=== PATIENT | female | born 2005 | race Caucasian/White ===

== ENCOUNTER 2024-10-31 13:09 | Outpatient (AMB) | payer BC, SELFPAY ==
--- NOTE | 2024-10-31 13:15 | A.OFFVIS_ITS ---
Vital Signs 10/31/24 13:22 Height 5 ft 4 in Weight 126 lb BMI 21.6 BP 100/62 Blood Pressure Location Rt brachial Position Sitting Pulse 62 Pulse Source Pulse Oximeter Pulse Oximetry (%) 100 Oxygen Delivery Method Room Air Intake Visit Reasons: Constipation Intake Note: Patient new consult for Constipation. Patient cc: C.O. constipation without any evidence of hemo. Pt reports having a bowel movement every 2-3 days on average but used to be daily. Pt had been taking lactulose for about 1 mos but did not see any results. General GI upset also reported. Retail Operations Manager Required: No Accompanied by: Self / Same As Patient Allergies gluten Allergy (Intermediate, Verified 10/31/24 13:15) Nausea Medication List - Last Reconciled 10/31/24 by Heike Frank CNP No Known Home Meds HPI HPI Constipation: Details: Patient is a 18-year-old female with PMH of factor 2 deficiency. Referred by PCP for further evaluation of constipation. The patient reports the sudden onset of lower abdominal pain and bloating that began in late July of this year. Pain is described as crampy and is present whenever food is ingested; it also occurs when the stomach is empty. The discomfort is rated approximately 5/10 and is localized to the lower abdomen. Bowel movements have decreased to three to four times per week; the patient experienced a 5-day period without stool after returning to school three weeks ago. Occasionally the patient notices mild heartburn but no regurgitation, nausea, or vomiting. There is no hematochezia. The patient reports reduced appetite because eating exacerbates the pain. Dietary history reveals a strict gluten-free diet for 1.5 years, a three-week trial of dairy avoidance, and an overall ?clean? whole-food diet with limited processed foods. The patient has tried lactulose (1 month) with worsening abdominal pain, a single dose of polyethylene glycol (Miralax) with minimal benefit, and an occasional ducolax suppository that helped stool passage but caused some gastric upset. The patient notes recent fatigue, mental fog, and a sense of low mood lasting several weeks, as well as hair thinning and irregular menstrual cycles (intervals of >1 month). No new medications, surgeries, or recent travel are reported. Patient denies: fever/chills, n/v, regurgitation,dysphasia, unintentional wt loss or melena/hematochezia. Social hx: -Diet: Gluten-free for ~18 months; recent dairy avoidance (3 weeks); whole?food, low-processed diet; attempts to increase fiber (gummies, occasional powder), Estimates ~64oz water per day; uses electrolyte ?Propel? packets -Alcohol: Approx. 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) -Physical activity: Active, plays basketball regularly - family hx as below -denies personal hx of CA -denies significant cardiopulmonary history PFSH Medical History (Updated 10/31/24 @ 15:13 by Heike Frank CNP) Abdominal pain Constipation Social History (Reviewed 10/31/24 @ 13:17 by Panchito Tristan [facility]) Alcohol intake: never Patient Tobacco Use Status: Never used Tobacco Review of Systems Const Reports as per HPI ENT Reports as per HPI Card Reports as per HPI Resp Reports as per HPI GI Reports as per HPI Reports as per HPI Physical Exam Const General: healthy appearing, no acute distress and well developed Nutritional Appearance: average body habitus Orientation/consciousness: patient oriented x3 HEENT Head: Yes normal to inspection, Yes normocephalic and Yes atraumatic Face and sinus: Yes normal facial exam Eyes General: appearance normal, both eyes and all related structures Neck Neck: Yes normal visual inspection Resp Effort & Inspection: normal respiratory effort, able to speak in complete sentences, no tracheal deviation and symmetric chest movement Cardio Jugular venous distension: no JVD GI Inspection: Yes normal to inspection and No distended Palpation (GI): Soft to palpation, not firm, nontender and No hepatosplenomegaly present Auscultation: normoactive bowel sounds Neuro General: patient oriented x3 Gait exam (Neuro): Normal gait present Psych Appearance: grossly normal Mental Status: mental status grossly normal Speech and movement: Normal speech and movement present Affect: normal affect Attitude: cooperative Thought process: Normal thought process present Thought content: Normal thought content present Insight: Good insight present (Psych) Judgement: Good judgement present (Psych) Assessment & Plan Assessment & Plan (1) Constipation: Code(s): K59.00 - Constipation, unspecified Category: Medical Qualifiers: Constipation type: unspecified constipation type Qualified Code(s): K59.00 - Constipation, unspecified Plan: Functional constipation (possible IBS-C) ? chronic low frequency stools, abdominal pain relieved partially by bowel movement, bloating, and lack of red flag features. DDX: Hypothyroidism VS Celiac disease (despite gluten avoidance, cross?contamination possible) VS H.pylori associated dyspepsia Testing: -CBC, CMP, TSH, -Celiac serology -H.pylori stool antigen Medication: -Polyethylene glycol 3350 (Miralax) 17g PO daily mixed in 8oz water. -Start fiber supplement tablet 1 tablet daily x 2 weeks, then titrate to 2 tablets daily as tolerated. Lifestyle: -Increase water intake to >=0?oz/day, especially with activity. -Emphasize high?fiber foods (whole grains, legumes, fruits, vegetables) while monitoring for gas?producing FODMAPs. -Encourage regular timed meals and physical activity. Follow-up: Review labs and symptom response in 3-months; earlier contact if worsening pain, hematochezia, or weight loss. She is a student in [place], will complete labs locally. Encouraged to set up patient portal for easier comminucation. Plan Follow-up in 3 months or sooner as needed Time: I spent a total of 45 minutes on the date of encounter which includes: Preparing to see the patient (reviewed previous documentation, test results and medical history) Performing a medically appropriate exam and/or evaluation Ordering medications, tests, and procedures Documenting clinical information in the health record Orders: Orders TSH reflex Free T4 Today K59.00 - Constipation, unspecified Complete Blood Count Auto Diff Today K59.00 - Constipation, unspecified H pylori Ag Stool Today R10.9 - Unspecified abdominal pain Transglutaminase IgA Today K59.00 - Constipation, unspecified Comprehensive [place]. Panel Fast Today K59.00 - Constipation, unspecified Medications: New methylcellulose (laxative) (Citrucel) Take one tablet daily X 2 week, follow by two tablets daily thereafter 180 tabs 2RF polyethylene glycol 3350 (Miralax) Take 17G (one cap full) daily with 8oz of water 17 grams PO DAILY 510 grams 2RF constipation 30 days Coding Level of Care Code New Pt New Pt Level 4 (12469) Patient Type New Diagnoses Constipation, unspecified constipation type K59.00 Constipation type: unspecified constipation type
[2024-10-31 13:22] VITALS: BP 100/62; PULSE 62; O2SAT 100; BMI 21.6
--- OUTSIDE RECORDS SUMMARY | 2024-10-31 17:05 | XMS_ITS | Clinical Summary ---
Author Organization [facility] Address [address] [place] [address] Phone Care Team Providers Care Embroidery Operator Name Role Phone Tutu Clifton MD Primary Care Provider Medications No known medications Active Problems Problem Noted Date Diagnosed Date Family history of sudden cardiac 0 Overview (04/21/2023): Both GM under the age of 55 of cardiac related issues (aneurism and GA) but no further evaluation was done for parents or patient. Dad was dx with diabetes in the last year and it has been managed with diet changes. No other family hx or changes reported. No prior hx of fasting labs that mom is aware of. Last Assessment & Plan: Will send for screening labs, fasting recommended. Will refer to cardiology (Dr. Luevano) for further evaluation to r/o more serious causes. Influenza vaccine refused 01/16/2020 Overview (04/21/2023): Offered at [facility] 01/15/2020 and mom declines, counseling offered, questions answered, can return at any time to get IZ - stressed importance. Offered at [facility] 01/03/2021 and mom declines, counseling offered, questions answered, can return at any time to get IZ - stressed importance. Offered at [facility] 12/2020 and declined, aware of availability in the community. Factor II deficiency 01/15/2020 08/13/2022 Overview (08/13/2022): Dx by hematology in 2018. Pt should NOT be put on estrogen containing OCPs Has never had any issues with clotting problems herself See Hematology note from 2018 Bladder leak 11/01/2017 08/13/2022 Overview (08/13/2022): Hx of issues since preschool (after successful toilet training). Worsening especially while playing sports. Concern for stress incontinence. Previously referred to urogynecology for evaluation and treatment. Pt had not had recent issues per mom and pt. Was dx with UTI 08/2019 that required 2nd dose of antibiotics (7 days of kelfex, with sx that recurred and 5 days of bactrim) - was seen by UC that comes ot the house for both visits - see scanned visit from 08/2019. Sx resolved. Last Assessment & Plan: When to follow up if sx recur, would rerefer to urogynecology given history. No ongoing concerns today. Encounters Date Type Department Care Team Description 08/30/2024 1:09 AM EDT - 08/30/2024 2:04 AM EDT Emergency [facility] [address] [place] [address] Lance Gallardo MD Discharge Disposition: Home or Self Care from Last 3 Months Family History Medical History Relation Comments No Known Problems Brother No Known Problems Father No Known Problems Maternal Aunt No Known Problems Maternal Grandfather No Known Problems Maternal Grandmother No Known Problems Maternal Uncle No Known Problems Mother No Known Problems Paternal Aunt No Known Problems Paternal Grandfather No Known Problems Paternal Grandmother No Known Problems Paternal Uncle No Known Problems Sister Clotting disorder Unspecified Diabetes Unspecified Cancer Neg Hx Collagen disease Neg Hx Depression Neg Hx Dislocations Neg Hx Gout Neg Hx Infl. arthritis Neg Hx Osteoporosis Neg Hx Scoliosis Neg Hx Relation Status Comments Brother Father Maternal Aunt Maternal Grandfather Maternal Grandmother Maternal Uncle Mother Paternal Aunt Paternal Grandfather Paternal Grandmother Paternal Uncle Sister Unspecified Social History Tobacco Use Types Packs/Day Years Used Date Smoking Tobacco: Never Smokeless Tobacco: Never Tobacco Cessation:Counseling Given: No Alcohol Use Standard Drinks/Week Comments No 0 (1 standard drink = 0.6 oz pur e alcohol) Education Answer Date Recorded Are you interested in more education? Not on cali e 06/12/2022 Are you concerned about learning? Not on file 06/12/2022 No 06/12/2022 No 06/12/2022 Food Answer Date Recorded Within the past 6 months we worried whether our food would run out before we got money to buy more. Never True 08/30/2024 Within the past 6 months the food we bought just didn't last and we didn't have enough money to get more. Never True Residential Stability Answer Date Recor ded What is your housing situation today? I have erik kang 08/30/2024 How many times have you move d in the past 12 months? Zero (I did not move) 08/30/2024 Paying for Meds Answer Date Recorded Do you have trouble paying for medicines? No 08/30/2024 Paying Utility Bills Answer Date Record ed Do you have trouble paying your heating or elect ricity bill? No 08/30/2024 Transportation Answer Date Recorded Has the lack of transportati on kept you from medical appointments or from getting medications? No 08/30/2024 Digital Access Answer Date Recorded Yes 08/30/2024 No 08/30/2024 Do you have reliable internet access at home? No 08/30/2024 Do you have a device (e.g., phone, tablet, computer) with a working camera? No 08/30/2024 Intimate Partner Violence Answer Date R ecorded Are you denied basic needs s uch as food, clothing, or medical care? No 08/30/2024 In the past 12 months have y ou been in a relationship with a person who hurts, threatens, or tries to control you? No 08/30/2024 Are you denied basic needs s uch as food, clothing, or medical care? No 08/30/2024 In the past 12 months have y ou been in a relationship with a person who hurts, threatens, or tries to control you? No 08/30/2024 Comments Unknown Sex and Gender Information Value Date Recorded Sex Assigned at Female 08/29/2024 11:58 PM EDT Legal Sex Female 8:30 PM EST Gender Identity Female 08/29/2024 11:58 PM EDT Sexual Orientation Straight 08/29/2024 11 :58 PM EDT Last Filed Vital Signs Vital Sign Reading Time Taken Comments Blood Pressure 104/66 08/30/2024 1:50 AM EDT Pulse 51 08/30/2024 1:50 AM EDT Temperature 36.6 C (97.9 F) 08/30/2024 1:50 AM EDT Respiratory Rate 16 08/30/2024 1:50 AM EDT Oxygen Saturation 100% 08/30/2024 1:50 AM EDT Inhaled Oxygen Concentration - - Weight 58.1 kg (128 lb) 08/29/2024 11:50 PM EDT Height 162.6 cm (5' 4 ) 06/10/2023 11:33 AM EDT Body Mass Index 21.97 06/10/2023 11:33 AM EDT Plan of Treatment Health Maintenance Due Date Last Done Comments DEVELOPMENTAL/BEHAVIORAL SCREENING (PHQ, PSC, or SWYC) 12/28/2006 HEPATITIS A VACCINES (2 of 2 - 2-dose series) 08/21/2015 02/20/2015 COMBINED DTaP,Tdap,Td (2 - T d or Tdap) 10/25/2015 09/27/2015 DEPRESSION SCREENING 2015 SMOKING Hx and SMOKELESS TOBACCO SCREENING 12/28/2016 MENINGOCOCCAL VACCINES (B) ( 1 of 2 - Standard) 2019 ADOLESCENT UNIVERSAL LIPID SCREENING 12/28/2020 HEPATITIS C SCREENING 12/28/2021 HIV ONE-TIME SCREENING (18-6 5 YEARS) 12/28/2021 CHLAMYDIA SCREENING 06/09/2024 06/10/2023 INFLUENZA VACCINE (#1) 2024 COVID-19 VACCINE ( - 2023-2 5 season) 2024 MMR VACCINES Completed 05/22/2008, 2004 VARICELLA VACCINES Completed 05/22/2008, 2004 HPV VACCINES Completed 01/15/2020, 11/01/2017 MENINGOCOCCAL VACCINES (ACWY) Completed , 09/27/2015 HIB VACCINES Aged Out No longer eligi ble based on patient's age to complete this topic PNEUMOCOCCAL VACCINES (0-49 years) Aged Out No longer eligible b ased on patient's age to complete this topic Medical Devices Not on file Procedures Procedure Name Priority Date/Time Associated Diagnosis Comments CHLAMYDIA TRACHOMATIS AND NEISSERIA GONORRHOEAE NUCLEIC ACID DETECTION Routine 06/10/2023 12:35 PM EDT Dysuria from Last 3 Months or Most Recently Relevant to Health Maintenance Results * Chlamydia Trachomatis and Neisseria Gonorrhoeae Nucleic Acid Detection (06/10/2023 12:35 PM EDT) Specimen Type [facility]AL [facility] C.TRACHOMATIS , AMP Negative Negative [facility] N.Gonorrhoeae , AMP Negative Negative [facility] Other (Vaginal) 06/10/2023 1 2:35 PM EDT 06/10/2023 10:04 PM EDT us Janes Marybel [employer] NON CULTURE MICROBIOLOGY Fin al Result Performing Organization Address City/State/[facility] Co de Phone Number [facility] [address] [place] [address] from Last 3 Months or Most Recently Relevant to Health Maintenance Care Teams Embroidery Operator Relationship Specialty Start Date End Date Tutu Clifton MD [address] [place] [id number] PCP - General Pediatrics 12/24/16 Additional Source Comments The information contained in this document represents components of the legal health record. It is not the complete legal health record.[facility]
== END 2024-10-31 13:58 | disposition home or self-care (01) ==
LOC: HO.HGI 13:10
PROVIDERS: PCP Pediatrics; Visit Provider Nurse Practitioner Family
DX: K59.00 Constipation, unspecified (principal)
CPT/HCPCS: 99204